=== PATIENT | male | born 1950 | race African-American/Black ===

== ENCOUNTER → 2017-02-14 | Outpatient (CLI) | payer MEDICARE, MEDICAID | END | disposition home or self-care (01) | LOC: RAD 11:30 | PROVIDERS: ATTEND Family Medicine | DX: M17.12 Unilateral primary osteoarthritis, left knee (principal); M47.817 Spondylosis without myelopathy or radiculopathy, lumbosacral region; M47.816 Spondylosis without myelopathy or radiculopathy, lumbar region | CPT/HCPCS: 72100; 73562 ==

== ENCOUNTER 2020-03-17 14:37 | Inpatient (IN) | payer MEDICARE, MEDICAID ==
[~2020-03-17] VITALS: Ht 170.2 cm; Wt 91.6 kg
[2020-03-17] MEDS ORDERED: SODIUM CHLORIDE 0.9% 1,000 ML IV ONE (15:31)
[2020-03-17 15:57] LABS: EOSINOPHILS % 1.6 % (0.0-5.0); HEMATOCRIT. 41.7 % (42.0-52.0); HEMOGLOBIN. 14.1 g/dL (14.0-18.0); MEAN CORPUSCULAR HEMOGLOBIN 32.2 pg (28.0-32.0); MEAN CORPUSCULAR VOLUME 95.4 fL (80.0-94.0); MEAN PLATELET VOLUME 8.7 fl (7.4-10.4); MONOCYTES % 11.2 % (2.0-8.0); NEUTROPHILS % 44.2 % (40.0-76.0); PLATELET 104 x1000/uL (130-400); RED BLOOD CELL COUNT 4.37 mill/uL (4.7-6.1); RED CELL DISTRIBUTION WIDTH 14.7 % (11.6-14.6)
[2020-03-17 16:03] LABS: CHLORIDE 103 mEq/L (98-107)
[2020-03-17 16:04] LABS: INR 1.1; PROTHROMBIN TIME 11.7 sec (9.6-11.0)
[2020-03-17 16:08] LABS: ETHANOL BLOOD 132 mg/dL
[2020-03-17 16:11] LABS: CREATINE KINASE 738 IU/L (39-308)
[2020-03-17 16:16] LABS: CLARITY URINE CLEAR (CLEAR); COLOR URINE YELLOW (YELLOW); KETONES URINE 1+ (NEGATIVE); LEUKOCYTE ESTERASE URINE NEGATIVE (NEGATIVE); NITRITE URINE NEGATIVE (NEGATIVE); OCCULT BLOOD URINE 2+ (NEGATIVE); PROTEIN URINE NEGATIVE (NEGATIVE); SPECIFIC GRAVITY URINE 1.015 (1.005-1.030)
[2020-03-17 16:31] LABS: *AMPHETAMINES SCREEN URINE NEGATIVE (NEGATIVE); *BARBITURATES SCREEN URINE NEGATIVE (NEGATIVE)
[2020-03-17 16:32] LABS: *BENZODIAZEPINES SCREEN URINE NEGATIVE (NEGATIVE); *COCAINE SCREEN URINE NEGATIVE (NEGATIVE); CANNABINOID URINE SCREEN NEGATIVE (NEGATIVE); METHADONE URINE SCREEN NEGATIVE (NEGATIVE); OPIATES URINE SCREEN NEGATIVE (NEGATIVE); PHENCYCLIDINE URINE SCREEN NEGATIVE (NEGATIVE)
[2020-03-17] MEDS: DEXT 5%/0.45% NACL 1000ML 1,000 ML IV SCH (20:20)
[2020-03-17 23:50] VITALS: BP_SYST 150; BP_SYST 166; BP_DIAS 108; BP_DIAS 116
[2020-03-18] MEDS ORDERED: DEXTROSE 50% WATER 50ML SYRINGE IV PRN (02:15)
[2020-03-18] MEDS: LISINOPRIL 5MG TABLET PO SCH ×2 (02:49→09:03)
[2020-03-18] MEDS ORDERED: KCL 10MEQ/50ML PREMIX 50 ML IV ONE (03:00)
[2020-03-18 04:00] VITALS: BP 165/96
[2020-03-18] MEDS: BLOOD SUGAR DIAGNOSTIC STRIP TEST SCH ×4 (06:20→21:02)
[2020-03-18 07:05] LABS: CHLORIDE 106 mEq/L (98-107)
[2020-03-18 07:35] LABS: HEMATOCRIT. 41.9 % (42.0-52.0); HEMOGLOBIN. 14.4 g/dL (14.0-18.0); MEAN CORPUSCULAR HEMOGLOBIN 32.6 pg (28.0-32.0); MEAN CORPUSCULAR VOLUME 95.2 fL (80.0-94.0); MEAN PLATELET VOLUME 8.9 fl (7.4-10.4); PLATELET 92 x1000/uL (130-400); RED CELL DISTRIBUTION WIDTH 14.8 % (11.6-14.6)
[2020-03-18 07:44] VITALS: BP 174/89
[2020-03-18] MEDS ORDERED: ENOXAPARIN 30MG/0.3ML SYR SUBCUT SCH (09:00)
[2020-03-18] MEDS: DEXT 5%/0.45% NACL 1000ML 1,000 ML IV SCH ×2 (09:04→21:03)
[2020-03-18] MEDS ORDERED: AMLODIPINE 5MG TABLET PO SCH (10:00)
[2020-03-18] MEDS: ASPIRIN 81MG EC TABLET PO NR ×2 (10:30→13:24)
[2020-03-18 11:55] VITALS: BP 151/101
[2020-03-18] MEDS: THIAMINE HCL 100MG TABLET PO SCH ×2 (13:23→13:24)
[2020-03-18] MEDS: MULTIVITAMINS,THER W-MINERALS TABLET PO SCH (13:23)
[2020-03-18] MEDS: FOLIC ACID 1MG TABLET PO SCH (13:24)
[2020-03-18 15:06] LABS: PLATELET ESTIMATE SLIGHTLY DECREASED
[2020-03-18 15:46] VITALS: BP 152/89
[2020-03-18 16:49] LABS: T4 FREE 1.3 ng/dL (0.76-1.46)
[2020-03-18 18:19] LABS: FOLIC ACID (FOLATE) SERUM 8.2 ng/mL (>5.38)
[2020-03-18 20:00] VITALS: BP 136/74
[2020-03-18] MEDS: AMLODIPINE 5MG TABLET PO SCH (21:03)
[2020-03-18] MEDS: LACTULOSE 20G/30ML UDC PO SCH (21:03)
[2020-03-18 21:38] LABS: HEPATITIS B SURFACE ANTIGEN NEGATIVE
[2020-03-18 22:08] LABS: HEPATITIS A AB IGM NEGATIVE (NEGATIVE)
[2020-03-19] VITALS: BP 139/87
[2020-03-19 00:21] LABS: HEPATITIS B SURFACE AB < 0.1 mIU/mL
[2020-03-19 04:00] VITALS: BP 168/83
[2020-03-19 06:04] LABS: BASOPHILS % 0.3 % (0.0-2.0); EOSINOPHILS % 1.8 % (0.0-5.0); HEMATOCRIT. 40.6 % (42.0-52.0); HEMOGLOBIN. 13.8 g/dL (14.0-18.0); LYMPHOCYTES % 46.3 % (20.0-50.0); MEAN CORPUSCULAR HEMOGLOBIN 32.2 pg (28.0-32.0); MEAN CORPUSCULAR VOLUME 94.9 fL (80.0-94.0); MEAN PLATELET VOLUME 9.2 fl (7.4-10.4); MONOCYTES % 13.6 % (2.0-8.0); PLATELET 92 x1000/uL (130-400); RED BLOOD CELL COUNT 4.28 mill/uL (4.7-6.1); RED CELL DISTRIBUTION WIDTH 14.4 % (11.6-14.6)
[2020-03-19] MEDS: LACTULOSE 20G/30ML UDC PO SCH ×3 (06:10→21:00)
[2020-03-19] MEDS: BLOOD SUGAR DIAGNOSTIC STRIP TEST SCH ×4 (06:11→20:06)
[2020-03-19 06:24] LABS: CHLORIDE 107 mEq/L (98-107)
[2020-03-19 08:00] VITALS: BP 143/94
[2020-03-19] MEDS ORDERED: POTASSIUM CHLORIDE 20MEQ TABLET SR PO NR (08:15)
[2020-03-19] MEDS: AMLODIPINE 5MG TABLET PO SCH ×2 (08:40→20:56)
[2020-03-19] MEDS: LISINOPRIL 5MG TABLET PO SCH (08:40)
[2020-03-19] MEDS: MULTIVITAMINS,THER W-MINERALS TABLET PO SCH (08:40)
[2020-03-19] MEDS: FOLIC ACID 1MG TABLET PO SCH (08:40)
[2020-03-19] MEDS: THIAMINE HCL 100MG TABLET PO SCH (08:40)
[2020-03-19] MEDS ORDERED: ENOXAPARIN 40MG/0.4ML SYR SUBCUT SCH (09:00)
[2020-03-19] MEDS ORDERED: MAGNESIUM 2 G PREMIX 50 ML IV NR (09:00)
[2020-03-19] MEDS ORDERED: ASPIRIN 81MG EC TABLET PO SCH (09:00)
[2020-03-19] MEDS: MAGNESIUM OXIDE 400MG TABLET PO SCH (10:23)
[2020-03-19] MEDS: DEXT 5%/0.45% NACL 1000ML 1,000 ML IV SCH ×2 (11:15→16:29)
[2020-03-19] MEDS ORDERED: ASPIRIN 81MG EC TABLET PO ONE (11:15)
[2020-03-19 12:00] VITALS: BP 139/75
[2020-03-19 16:00] VITALS: BP 171/99
[2020-03-19] MEDS ORDERED: CLONIDINE 0.1MG TABLET PO PRN (17:30)
[2020-03-19 20:00] VITALS: BP 167/84
[2020-03-20] VITALS: BP 133/89
[2020-03-20 04:00] VITALS: BP 153/87
[2020-03-20] MEDS: LACTULOSE 20G/30ML UDC PO SCH ×3 (06:00→21:40)
[2020-03-20] MEDS: BLOOD SUGAR DIAGNOSTIC STRIP TEST SCH ×4 (06:45→21:40)
[2020-03-20 07:15] LABS: BASOPHILS % 0.6 % (0.0-2.0); EOSINOPHILS % 2.8 % (0.0-5.0); HEMATOCRIT. 41.3 % (42.0-52.0); HEMOGLOBIN. 13.9 g/dL (14.0-18.0); LYMPHOCYTES % 44.9 % (20.0-50.0); MEAN CORPUSCULAR HEMOGLOBIN 31.9 pg (28.0-32.0); MEAN CORPUSCULAR VOLUME 94.9 fL (80.0-94.0); MEAN PLATELET VOLUME 9.3 fl (7.4-10.4); MONOCYTES % 13.4 % (2.0-8.0); NEUTROPHILS % 38.3 % (40.0-76.0); PLATELET 86 x1000/uL (130-400); RED BLOOD CELL COUNT 4.35 mill/uL (4.7-6.1); RED CELL DISTRIBUTION WIDTH 14.4 % (11.6-14.6)
[2020-03-20 07:17] LABS: CHLORIDE 108 mEq/L (98-107)
[2020-03-20 07:23] LABS: PHOSPHORUS 2.4 mg/dL (2.5-4.9)
[2020-03-20 07:54] VITALS: BP 144/98
[2020-03-20] MEDS: MAGNESIUM OXIDE 400MG TABLET PO SCH (08:52)
[2020-03-20] MEDS: AMLODIPINE 5MG TABLET PO SCH ×2 (08:53→21:40)
[2020-03-20] MEDS: FOLIC ACID 1MG TABLET PO SCH (08:53)
[2020-03-20] MEDS: ASPIRIN 81MG EC TABLET PO SCH (08:53)
[2020-03-20] MEDS: MULTIVITAMINS,THER W-MINERALS TABLET PO SCH (08:53)
[2020-03-20] MEDS: LISINOPRIL 5MG TABLET PO SCH (08:53)
[2020-03-20] MEDS: THIAMINE HCL 100MG TABLET PO SCH (08:53)
[2020-03-20] MEDS ORDERED: SODIUM PHOS,M-BASIC-D-BASIC 15 MM in DEXT 5% WATER 245 ML IV SCH (11:00)
[2020-03-20 12:00] VITALS: BP 152/95
[2020-03-20 16:00] VITALS: BP 131/67
[2020-03-20 20:00] VITALS: BP 139/89
[2020-03-21] VITALS: BP 139/89
[2020-03-21 04:00] VITALS: BP 149/98
[2020-03-21] MEDS: BLOOD SUGAR DIAGNOSTIC STRIP TEST SCH ×4 (06:26→21:09)
[2020-03-21] MEDS: CYANOCOBALAMIN 1000MCG TABLET PO SCH (06:35)
[2020-03-21] MEDS: LACTULOSE 20G/30ML UDC PO SCH ×3 (06:35→21:25)
[2020-03-21 07:17] LABS: CHLORIDE 105 mEq/L (98-107)
[2020-03-21 07:18] LABS: BASOPHILS % 0.6 % (0.0-2.0); EOSINOPHILS % 1.7 % (0.0-5.0); HEMOGLOBIN. 14.9 g/dL (14.0-18.0); LYMPHOCYTES % 30.5 % (20.0-50.0); MEAN CORPUSCULAR HEMOGLOBIN 32.5 pg (28.0-32.0); MEAN PLATELET VOLUME 9.9 fl (7.4-10.4); MONOCYTES % 11.7 % (2.0-8.0); NEUTROPHILS % 55.5 % (40.0-76.0); PLATELET 91 x1000/uL (130-400); RED BLOOD CELL COUNT 4.58 mill/uL (4.7-6.1); RED CELL DISTRIBUTION WIDTH 14.8 % (11.6-14.6)
[2020-03-21 07:30] LABS: PHOSPHORUS 2.6 mg/dL (2.5-4.9)
[2020-03-21 08:00] VITALS: BP 144/92
[2020-03-21] MEDS: LISINOPRIL 10MG TABLET PO SCH (09:25)
[2020-03-21] MEDS: MAGNESIUM OXIDE 400MG TABLET PO SCH (09:25)
[2020-03-21] MEDS: THIAMINE HCL 100MG TABLET PO SCH (09:25)
[2020-03-21] MEDS: AMLODIPINE 5MG TABLET PO SCH ×2 (09:25→21:23)
[2020-03-21] MEDS: ASPIRIN 81MG EC TABLET PO SCH (09:25)
[2020-03-21] MEDS: FOLIC ACID 1MG TABLET PO SCH (09:26)
[2020-03-21] MEDS: MULTIVITAMINS,THER W-MINERALS TABLET PO SCH (09:28)
[2020-03-21 12:00] VITALS: BP 142/96
[2020-03-21 16:00] VITALS: BP 140/95
[2020-03-21 20:00] VITALS: BP 139/89
[2020-03-21] MEDS ORDERED: ATORVASTATIN CALCIUM 10MG TABLET PO SCH (21:00)
[2020-03-22] VITALS: BP 128/60
[2020-03-22 04:00] VITALS: BP 136/81
[2020-03-22] MEDS: BLOOD SUGAR DIAGNOSTIC STRIP TEST SCH ×2 (06:17→12:10)
[2020-03-22] MEDS: CYANOCOBALAMIN 1000MCG TABLET PO SCH (06:20)
[2020-03-22] MEDS: LACTULOSE 20G/30ML UDC PO SCH ×2 (06:20→15:41)
[2020-03-22 08:00] VITALS: BP 153/95
[2020-03-22] MEDS: LISINOPRIL 10MG TABLET PO SCH (08:53)
[2020-03-22] MEDS: ASPIRIN 81MG EC TABLET PO SCH (08:53)
[2020-03-22] MEDS: FOLIC ACID 1MG TABLET PO SCH (08:53)
[2020-03-22] MEDS: THIAMINE HCL 100MG TABLET PO SCH (08:53)
[2020-03-22] MEDS: MAGNESIUM OXIDE 400MG TABLET PO SCH (08:53)
[2020-03-22] MEDS: AMLODIPINE 5MG TABLET PO SCH (08:53)
[2020-03-22 10:39] LABS: BASOPHILS % 0.8 % (0.0-2.0); HEMOGLOBIN. 15.1 g/dL (14.0-18.0); LYMPHOCYTES % 25.5 % (20.0-50.0); MEAN CORPUSCULAR HEMOGLOBIN 32.7 pg (28.0-32.0); MEAN CORPUSCULAR VOLUME 95.6 fL (80.0-94.0); MEAN PLATELET VOLUME 8.8 fl (7.4-10.4); MONOCYTES % 12.6 % (2.0-8.0); NEUTROPHILS % 60.1 % (40.0-76.0); PLATELET 100 x1000/uL (130-400); RED CELL DISTRIBUTION WIDTH 14.6 % (11.6-14.6)
[2020-03-22 11:05] LABS: CHLORIDE 106 mEq/L (98-107)
[2020-03-22] MEDS: MULTIVITAMINS,THER W-MINERALS TABLET PO SCH (11:35)
[2020-03-22 12:00] VITALS: BP 138/87
[2020-03-22 13:48] VITALS: BP 138/87
[2020-03-22 16:00] VITALS: BP 132/82
[2020-03-23 08:00] VITALS: BP 132/76
== END 2020-03-22 16:45 | disposition home or self-care (01) | DRG 64 ==
LOC: ER 14:37 → MICUSO 18:49 → EDBEDREQ 18:56 → 8WST 23:21
PROVIDERS: ADMIT Internal Medicine Nephrology; ATTEND Internal Medicine Nephrology
DX: I63.9 Cerebral infarction, unspecified (principal); G92 Toxic encephalopathy; M62.82 Rhabdomyolysis; N17.9 Acute kidney failure, unspecified; E44.0 Moderate protein-calorie malnutrition; F10.10 Alcohol abuse, uncomplicated; E16.2 Hypoglycemia, unspecified; Y90.6 Blood alcohol level of 120-199 mg/100 ml; I10 Essential (primary) hypertension; E86.9 Volume depletion, unspecified; E87.6 Hypokalemia; R00.1 Bradycardia, unspecified; D69.6 Thrombocytopenia, unspecified; J44.9 Chronic obstructive pulmonary disease, unspecified; I73.9 Peripheral vascular disease, unspecified; F17.210 Nicotine dependence, cigarettes, uncomplicated; E86.0 Dehydration; R90.82 White matter disease, unspecified; E83.42 Hypomagnesemia; B19.20 Unspecified viral hepatitis C without hepatic coma; Z68.31 Body mass index [BMI] 31.0-31.9, adult; Z86.73 Personal history of transient ischemic attack (TIA), and cerebral infarction without residual deficits; Z71.6 Tobacco abuse counseling
CPT/HCPCS: 36415; 70551; 71045; 76700; 80048; 80053; 80305; 80307; 80320; 80329; 81003; 82140; 82550; 82607; 82746; 82962; 83036; 83721; 83735; 83880; 84100; 84439; 84443; 84481; 84484; 85025; 86705; 86706; 86709; 86803; 87340; 92610; 93005; 93306; 93880; 93970; 96374; 97162; 97166; 99285; J1650; J3475; J3480; J3490; J7030; J7060; G0480